=== PATIENT | male | born 1960 | race Caucasian/White ===

== ENCOUNTER → 2020-12-03 07:53 | Outpatient (CLI) | payer OTHER, SELFPAY | PROVIDERS: Visit Provider Specialist | DX: N39.0 Urinary tract infection, site not specified (principal); R97.20 Elevated prostate specific antigen [PSA]; N40.1 Benign prostatic hyperplasia with lower urinary tract symptoms; N13.8 Other obstructive and reflux uropathy; N52.9 Male erectile dysfunction, unspecified | CPT/HCPCS: 51798; 81002; 87086 ==

== ENCOUNTER → 2020-12-07 16:02 | Outpatient (CLI) | payer OTHER, SELFPAY ==
--- NOTE | 2020-12-07 16:04 | DI.MRI.S_ITS ---
PROCEDURE: MR PELIS WO/W CON INDICATIONS: Elevated PSA TECHNIQUE: Coronal HASTE, axial T1 FSE with fat saturation, 3-plane nonbreath-hold T2 FSE. After the administration of contrast, dynamic axial, delayed axial and coronal VIBE or 2-D FLASH with fat saturation through the pelvis. Optional diffusion weighted imaging and ADC may be performed. COMPARISON: None. FINDINGS: Image quality: Diffusion weighted and dynamic contrast enhanced images are diagnostic. Prostate: Gland size is 5.1 x 4.1 x 4.9 cm; ellipsoid gland volume is 53 mL. There is slight median lobe hypertrophy indenting on the base the bladder. Morphology of the peripheral zone is maintained. The transitional zone is enlarged and mildly heterogeneous. No discrete diffusion, ADC, or T2 weighted abnormalities in the prostate gland. Genitourinary system: The urinary bladder is predominantly decompressed throughout the exam. Bladder wall thickness is normal. Distal ureters are non distended. Bowel and peritoneum: Diverticulosis of the sigmoid and visible distal descending colon. No pathologic free pelvic fluid. Inferior colon and small bowel loops are normal in caliber. Nodes and vessels: No pelvic or inguinal adenopathy by size criteria. Iliac vessels are normal in caliber. Soft tissues: Fat containing right inguinal hernia and lipomatous changes to the left spermatic cord. Bones: Marrow demonstrates normal overall signal, without lesions to suggest metastases. IMPRESSION: 1. No evidence of focal abnormality in the prostate gland to guide targeted biopsy. 2. Mild benign prostatic hypertrophy. 3. Fat containing right inguinal hernia. Dictated by: Yoli Mcgraw M.D. on 12/07/2020 at 17:29 Approved by: Yoli Mcgraw M.D. on 12/07/2020 at 17:38
== END ==
PROVIDERS: Referring Provider Specialist; Visit Provider Specialist
DX: R97.20 Elevated prostate specific antigen [PSA] (principal); N40.0 Benign prostatic hyperplasia without lower urinary tract symptoms; K40.90 Unilateral inguinal hernia, without obstruction or gangrene, not specified as recurrent; K57.30 Diverticulosis of large intestine without perforation or abscess without bleeding
CPT/HCPCS: 72197; A9579

== ENCOUNTER → 2021-12-15 08:03 | Outpatient (CLI) | payer OTHER, SELFPAY | PROVIDERS: PCP Family Medicine; Visit Provider Specialist | DX: R30.0 Dysuria (principal); K40.90 Unilateral inguinal hernia, without obstruction or gangrene, not specified as recurrent; N40.1 Benign prostatic hyperplasia with lower urinary tract symptoms; N13.8 Other obstructive and reflux uropathy; N48.6 Induration penis plastica; R97.20 Elevated prostate specific antigen [PSA] | CPT/HCPCS: 51798; 81002; 87086; 99215 ==

== ENCOUNTER → 2021-12-17 08:06 | Outpatient (CLI) | payer OTHER, SELFPAY ==
[2021-12-17 10:36] LABS: COVID19 -Nasal RAPID Negative (Negative)
== END ==
PROVIDERS: PCP Family Medicine; Visit Provider Specialist
DX: Z20.822 Contact with and (suspected) exposure to COVID-19 (principal)
CPT/HCPCS: 87635; C9803

== ENCOUNTER 2021-12-20 06:18 | Day surgery (SDC) | payer OTHER, SELFPAY ==
[2021-12-17 08:06] VITALS: BMI 32.6
[2021-12-20] VITALS (8 sets, daily range): BP systolic 118–131; BP diastolic 72–84; PULSE 70–81; RESP 12–18; TEMP 36.4–36.9; O2SAT 95–100; BMI 32.6
[2021-12-20] MEDS: LACTATED RINGERS 1,000 ML 42 ML IV (07:18)
--- NOTE | 2021-12-20 07:34 | PM.PREOP ---
Pre-operative Note COVID-19 Criteria for continued procedure: Increased loss of function, Continuing or worsening of significant or severe pain, Deterioration of the patient's condition or overall health, Delay expected to result in less-positive ultimate med/surg outcome and Non-surgical alternatives not available or appropriate per current SOC Interval Note History & Physical reviewed/Exam performed by Physician: Yes Changes to H&P: No
[2021-12-20] MEDS: CEFAZOLIN 2 GM/20 ML SYRINGE IV (07:45)
--- NOTE | 2021-12-20 08:08 | SUR.OPER ---
Supine on padded OR bed, head on pillow, arms secured on padded arm boards at <90 degrees abduction, legs uncrossed, safety belt at thigh, tape over blanket over lower legs.
[2021-12-20] MEDS: BUPIVACAINE LIPOSOME 266 MG/20 ML VIAL INJ (08:11)
[2021-12-20] MEDS: BUPIVACAINE 0.25% W/ EPI 30 ML VIAL INJ (08:12)
--- NOTE | 2021-12-20 09:44 | P.OP_ITS ---
Operative Date/Time/Diagnoses Date of procedure: 12/20/21 Time of procedure: 09:44 Pre-op diagnosis: Symptomatic right inguinal hernia. Post-op diagnosis: same Procedure & Clinicians Procedure: 1. Right inguinal hernia repair with mesh. Same procedure as scheduled: Yes Indications: 1. Symptomatic right inguinal hernia. Surgeon: Leanna Ross Click Yes if Unassisted: Yes Anesthesia Type: General and Local (1.33% Exparel.) Operative Notes Findings: 1. Large cord lipoma. 2. Attenuation and disruption of the inguinal floor and associated direct hernia. Closure Type: primary Prosthetic devices, grafts, tissues, transplants, or devices: Tailored 3 in x 6 in polypropylene mesh. Estimated Blood Loss (mL): 2 Blood products transfused: none Procedure in detail: The patient was positioned in supine was administered general anesthesia. The lower abdomen and genitalia were then prepped and draped in sterile fashion. Solution of 0.5% Marcaine with epinephrine was then used to infiltrate the skin over right inguinal canal. An oblique incision was then made through the skin. Cautery and blunt dissection were then used to divide the subcutaneous fat and Elicia's fascia layer down to the level of the external oblique fascia. The external oblique fascia was attenuated and to about the midpoint of the canal distally. A prominent bulge was evident immediately. The cord was then carefully mobilizedand isolated. The cord was then meticulously dissected using blunt and cautery dissection. A large cord lipoma was identified extending to the external ring. It was from the contents of the cord proper. It was then repositioned within the abdominal cavity. The inguinal floor was then reapproximated with running 2-0 Monocryl to recapitulate normal anatomy. Next, a 3 in x 6 in sheet of polypropylene mesh was selected. It was tailored as needed and positioned over the repair of the inguinal floor. Interrupted 3-0 Prolene were placed at the pubic tubercle and where needed to position the mesh in a tension-free and flat to contour fashion. An aperture was created in a stellate fashion to accommodate the cord at the reconstructed internal ring. Lateral tails were then created and crossed laterally. The external obliques fascia was then reapproximated using 2-0 PDS. The fascia was infiltrated with Exparel anesthetic. Elicia's fascia was then reapproximated with 2-0 PDS in interrupted fashion. This layer to was infiltrated with Exparel local anesthetic. Next, the skin was infiltrated with Exparel and the lateral field block was performed at percutaneous level as well. Skin was then reapproximated using a running subcuticular 4 Monocryl. A small segment of Telfa gauze was then tailored to fit over the incision. A medium Op site was then applied over the Telfa in the skin to create a bio occlusive finish. The patient was then awakened, transferred to [facility], and transported to recovery in stable condition. Complications: none Post-operative Condition: stable Disposition: PACU Plan for aftercare: Discharge home.
== END 2021-12-20 10:23 | disposition home or self-care (01) ==
PROVIDERS: PCP Family Medicine; Referring Provider Specialist; Visit Provider Specialist
PROC: (CPT 49505; principal; 2021-12-20 07:45)
DX: K40.90 Unilateral inguinal hernia, without obstruction or gangrene, not specified as recurrent (principal)
CPT/HCPCS: 49505; C9290; J0690; J1100; J1885; J2405; J2704; J3010